=== PATIENT | male | born 2000 | race Two or more races ===

== ENCOUNTER → 2020-08-13 16:20 | Outpatient (CLI) | payer OTHER, SELFPAY | PROVIDERS: Visit Provider Family Medicine | DX: Z23 Encounter for immunization (principal) | CPT/HCPCS: 0031A; 91303 ==

== ENCOUNTER 2021-05-07 12:47 | Outpatient (CLI) | payer OTHER, SELFPAY | END 2021-05-07 23:59 | disposition short-term general hospital (02) | LOC: IMMUN 05-13 12:49 | PROVIDERS: Visit Provider Family Medicine | DX: Z23 Encounter for immunization (principal) ==